=== PATIENT | female | born 1960 | race Caucasian/White ===

== ENCOUNTER → 2017-01-28 | Outpatient (CLI) | payer BC ==
[~2017-01-28] MED LIST: CLTP PO; LAMO150T32 PO; LISI-725 PO; MULT-506 PO; SIMV10TA2 PO
--- NOTE | 2017-01-28 14:55 | MAMMOGRAPHY REPORT ---
BILATERAL DIGITAL SCREENING MAMMOGRAM TOMOSYNTHESIS WITH CAD: 01/28/2017 CLINICAL HISTORY: Routine screening. Patient has no complaints. TECHNIQUE: Breast tomosynthesis in addition to standard 2D mammography was performed. Current study was also evaluated with a Computer Aided Detection (CAD) system. COMPARISON: Comparison is made to exams dated: 10/07/2014 mammogram, 12/23/2015 mammogram, 09/17/2013 ma mmogram, 06/22/2012 mammogram, 06/08/2011 mammogram, and 06/04/2010 mammogram - [facility] er. BREAST COMPOSITION: There are scattered areas of fibroglandular density in both breasts. FINDINGS: No suspicious masses, calcifications, or areas of architectural distortion are noted in ei ther breast. There has been no significant interval change compared to prior exams. Scattered bilater al benign-appearing calcifications are not significantly changed. Right breast asymmetries are stabl e compared to prior exams. IMPRESSION: ACR BI-RADS CATEGORY 2: BENIGN There is no mammographic evidence of malignancy. A 1 year screening mammogram is recommended. The pa tient will receive written notification of the results. Approximately 10% of breast cancers are not detected with mammography. A negative mammographic report should not delay biopsy if a clinically suggestive mass is present. Brooklynn Acevedo M.D. /:01/28/2017 12:33:49 Desktop Publishing Specialist: Tessie GOMEZ(Maryan)(Jez), [facility] letter sent: Normal 1/2 BI-RADS Code: ACR BI-RADS Category 2: Benign
== END | disposition home or self-care (01) ==
LOC: C.MAMM 08:46
PROVIDERS: ATTEND Obstetrics & Gynecology
DX: Z12.31 Encounter for screening mammogram for malignant neoplasm of breast (principal)

== ENCOUNTER → 2017-01-31 | Outpatient (CLI) | payer BC | END | disposition home or self-care (01) | LOC: C.PAPS 13:57 | PROVIDERS: ATTEND Obstetrics & Gynecology | DX: Z01.419 Encounter for gynecological examination (general) (routine) without abnormal findings (principal) ==

== ENCOUNTER → 2017-12-26 | Outpatient (CLI) | payer OTHER ==
[~2017-12-26] MED LIST changes: +LAMO150T PO; -LAMO150T32 PO
--- NOTE | 2017-12-26 15:25 | ECHOCARDIOGRAM REPORT ---
*NOTICE TO RECEIVING REPUBLICAN AGENCY This information is strictly Confidential and protected under [place] law. [place] law prohibits you from making any further disclosure of this information unless further disclosure is expressly permitted by the written consent of the person to whom it pertains or is authorized by law. A general authorization for the release of medical or other information is not sufficient for this purpose. Hospital accepts no responsibility if the information is made available to any other person, INCLUDING THE PATIENT. Interpretation Summary * Name: ADONIS CRUZ Study Date: 12/26/2017 01:38 PM BP: 150/67 mmHg * Patient Location: [facility] HR: 66 * : 1960 (M/d/yyyy) Gender: Female Height: 66 in * Age: 57 yrs Ethnicity: [place] Weight: 192 lb * Ordering Physician: Jad Sal * Referring Physician: Waqas Manuel D.O. * Performed By: Tiffanie Ruiz RDCS * * Reason For Study: AORTIC STENOSIS * BSA: 2.0 m2 * -- Conclusions -- * Left ventricular systolic function is normal. * Grade I diastolic dysfunction, (abnormal relaxation pattern). * Mild valvular aortic stenosis. * Compared to an echocardiogram from 01/27/2015, there is no change in the degree of aortic stenosis. Procedure Details * A complete two-dimensional transthoracic echocardiogram was performed (2D, M-mode, Doppler and color flow Doppler). Left Ventricle * The left ventricle is normal in size. * There is normal left ventricular wall thickness. * Left ventricular systolic function is normal. * Ejection Fraction = 55-60%. * Grade I diastolic dysfunction, (abnormal relaxation pattern). * The left ventricular wall motion is normal. Right Ventricle * The right ventricle is normal in size and function. Atria * The left atrial size is normal. * Right atrial size is normal. Mitral Valve * The mitral valve is grossly normal. * Significant mitral regurgitation is absent. Tricuspid Valve * The tricuspid valve is not well visualized, but is grossly normal. * Significant tricuspid regurgitation is absent. Aortic Valve * The aortic valve is normal in structure and function. * The aortic valve is trileaflet. * Mild valvular aortic stenosis. * There is no significant aortic regurgitation. Pulmonic Valve * The pulmonic valve is not well visualized. Great Vessels * The aortic root is normal size. Pericardium/Pleural * There is no pericardial effusion. Great Vessels * Normal inferior vena cava diameter and respiratory variation suggests normal central venous pressure. MMode 2D Measurements and Calculations IVSd 0.85 cm IVSs 1.5 cm LVIDd 4.7 cm LVIDs 2.8 cm LVPWd 0.91 cm LVPWs 1.6 cm IVS/LVPW 0.94 FS 40.9 % EDV(Teich) 102.6 ml ESV(Teich) 29.1 ml EF(Teich) 71.7 % EDV(cubed) 104.1 ml ESV(cubed) 21.5 ml EF(cubed) 79.3 % % IVS thick 70.3 % % LVPW thick 72.9 % LV mass(C)d 138.8 grams LV mass(C)dI 70.6 grams/m\S\2 LV mass(C)s 145.3 grams LV mass(C)sI 73.9 grams/m\S\2 SV(Teich) 73.5 ml SI(Teich) 37.4 ml/m\S\2 SV(cubed) 82.6 ml SI(cubed) 42.0 ml/m\S\2 Ao root diam 2.4 cm Ao root area 4.5 cm\S\2 LA dimension 3.2 cm LA/Ao 1.4 LVOT diam 2.0 cm LVOT area 3.0 cm\S\2 LVAd ap4 29.1 cm\S\2 LVLd ap4 8.2 cm EDV(MOD-sp4) 83.5 ml EDV(sp4-el) 87.1 ml LVAs ap4 15.7 cm\S\2 LVLs ap4 7.3 cm ESV(MOD-sp4) 29.6 ml ESV(sp4-el) 28.7 ml EF(MOD-sp4) 64.5 % EF(sp4-el) 67.1 % LVAd ap2 29.4 cm\S\2 LVLd ap2 8.3 cm EDV(MOD-sp2) 84.9 ml EDV(sp2-el) 87.9 ml LVAs ap2 16.2 cm\S\2 LVLs ap2 7.3 cm ESV(MOD-sp2) 30.8 ml ESV(sp2-el) 30.5 ml EF(MOD-sp2) 63.7 % EF(sp2-el) 65.3 % LVLd %diff 0.92 % EDV(MOD-bp) 84.9 ml LVLs %diff -0.36 % ESV(MOD-bp) 30.2 ml EF(MOD-bp) 64.4 % SV(MOD-sp4) 53.9 ml SI(MOD-sp4) 27.4 ml/m\S\2 SV(MOD-sp2) 54.1 ml SI(MOD-sp2) 27.5 ml/m\S\2 SV(MOD-bp) 54.7 ml SI(MOD-bp) 27.8 ml/m\S\2 SV(sp4-el) 58.5 ml SI(sp4-el) 29.7 ml/m\S\2 SV(sp2-el) 57.4 ml SI(sp2-el) 29.2 ml/m\S\2 Doppler Measurements and Calculations MV E max espinoza 98.1 cm/sec MV A max espinoza 106.8 cm/sec MV E/A 0.92 MV dec time 0.23 sec Ao V2 max 235.4 cm/sec Ao max PG 22.2 mmHg Ao max PG (full) 15.9 mmHg Ao V2 mean 158.2 cm/sec Ao mean PG 11.5 mmHg Ao mean PG (full) 7.9 mmHg Ao V2 VTI 51.3 cm KERMIT(I,A) 1.7 cm\S\2 KERMIT(I,D) 1.7 cm\S\2 KERMIT(V,A) 1.6 cm\S\2 KERMIT(V,D) 1.6 cm\S\2 AI max espinoza 369.3 cm/sec AI max PG 54.5 mmHg AI dec slope 231.6 cm/sec\S\2 AI P1/2t 467.0 msec LV V1 max PG 6.3 mmHg LV V1 mean PG 3.5 mmHg LV V1 max 125.5 cm/sec LV V1 mean 88.0 cm/sec LV V1 VTI 29.7 cm SV(Ao) 232.1 ml SI(Ao) 118.1 ml/m\S\2 SV(LVOT) 89.6 ml SI(LVOT) 45.6 ml/m\S\2
== END | disposition home or self-care (01) ==
LOC: C.CPL 13:30
DX: I35.0 Nonrheumatic aortic (valve) stenosis (principal)